=== PATIENT | male | born 1995 | race African-American/Black ===

== ENCOUNTER 2017-12-12 15:08 | Emergency (ER) | payer SELFPAY ==
[~2017-12-12] VITALS: Ht 172.7 cm; Wt 63.5 kg
[2017-12-12 15:15] VITALS: BP_SYST 127
[2017-12-12] MEDS ORDERED: NACL 0.9% 1,000 ML IV ONE (15:27)
[2017-12-12 15:50] LABS: BASOPHILS % (AUTO) 0.3 % (0.0-2.0); EOSINOPHILS # (AUTO) 0.1 K/uL (0.0-0.4); EOSINOPHILS % (AUTO) 0.7 % (0.0-4.0); HEMATOCRIT 48.6 % (36-54); HEMOGLOBIN 15.7 g/dL (14.0-18.0); LYMPHOCYTES # (AUTO) 2.3 K/uL (1.0-5.5); LYMPHOCYTES % (AUTO) 26.5 % (20.5-51.5); MEAN CORPUSCULAR HEMOGLOBIN 28 pg (27-31); MEAN CORPUSCULAR HGB CONC 32 % (32-36); MEAN CORPUSCULAR VOLUME 86 fL (79.0-98.0); MONOCYTES # (AUTO) 0.5 K/uL (0.0-1.0); MONOCYTES % (AUTO) 5.8 % (1.7-9.3); NEUTROPHILS # (AUTO) 5.9 K/uL (1.8-7.7); NEUTROPHILS % (AUTO) 66.7 % (40.0-70.0); PLATELET COUNT (AUTO) 396 K/uL (130-430); RED BLOOD CELL COUNT(AUTO) 5.64 MIL/uL (4.2-6.2); RED CELL DISTRIBUTION WIDTH 11.3 % (9.0-15.0); WHITE BLOOD COUNT (AUTO) 8.8 K/uL (4.8-10.8)
[2017-12-12 16:12] LABS: INR 1.1 (0.80-1.20)
[2017-12-12 16:20] LABS: ANION GAP 10 (5-15); CHLORIDE 105 mmol/L (98-107); CREATININE 1.27 mg/dL (0.55-1.30); GLUCOSE 87 mg/dL (70-99); POTASSIUM 3.5 mmol/L (3.5-5.1); SODIUM SERUM 140 mmol/L (136-145); UREA NITROGEN, BLOOD 12 mg/dL (8-21)
[2017-12-12 16:21] LABS: GFR AFRICAN AMERICAN 90 mL/min (>90)
[2017-12-12 16:25] LABS: ALANINE AMINOTRANSFERASE 16 U/L (12-78); ALBUMIN 4.2 g/dL (3.4-4.8); AMYLASE 93 U/L (0-100); ASPARTATE AMINOTRANSFERASE 19 U/L (10-37); LIPASE 147 U/L (73-393); TOTAL BILIRUBIN 0.6 mg/dL (0.0-1.0)
[2017-12-12 16:29] LABS: ALCOHOL, BLOOD < 3 mg/dL (<10)
[2017-12-12 17:40] VITALS: BP_SYST 119
== END 2017-12-12 17:40 | disposition left against medical advice (07) ==
LOC: SED 15:08
DX: R53.1 Weakness (principal); E11.9 Type 2 diabetes mellitus without complications
CPT/HCPCS: 36415; 71045; 80053; 82150; 83690; 84484; 85025; 85610; 85730; 93005; 96360; 99285; G0482; J7030